=== PATIENT | female | born 1980 | race Caucasian/White ===

== ENCOUNTER 2016-03-04 11:11 | Emergency (ER) | END 2016-03-04 18:12 | disposition home or self-care (01) | DX: O20.9 Hemorrhage in early pregnancy, unspecified (principal); Z3A.01 Less than 8 weeks gestation of pregnancy | CPT/HCPCS: 36415; 76801; 76817; 81001; 84702; 85025; 86900; 86901; Z7502 ==

== ENCOUNTER 2016-03-05 09:21 | Day surgery (SDC) | payer MEDICAID ==
[~2016-03-05] VITALS: Wt 63.0 kg
--- NOTE | 2016-03-05 10:12 | ERA ---
ER Documentation Chief Complaint Date/Time DATE: 03/05/16 TIME: 10:10 Chief Complaint LOWER ABD PAIN AND VAG BLEED. RECENT MISCARRIAGE 3 DAYS AGO . NEEDS D&C HPI This is a 35-year-old female who was sent into the emergency room by her ENGINEERING SPECIALIST TECHNICIAN physician, Dr. keith for a D&C. This patient had a recent miscarriage 3 days ago with imaging showing retained products of conception. She has been having abdominal cramping and bleeding. And was instructed to come to the ER for evaluation ROS All systems reviewed and are negative except as per history of present illness. Allergies Allergies: Coded Allergies: No Known Allergy (Unverified , 03/04/16) PMhx/Soc Medical and Surgical Hx: pt denies Medical Hx, pt denies Surgical Hx Hx Alcohol Use: No Hx Substance Use: No Hx Tobacco Use: No Smoking Status: Never smoker Physical Exam Vitals Vital Signs Date Time Temp Pulse Resp B/P Pulse Ox O2 Delivery O2 Flow Rate FiO2 03/05/16 09:27 98.8 81 20 113/70 99 Physical Exam Const: No acute distress Head: Atraumatic Eyes: Normal Conjunctiva ENT: Normal External Ears, Nose and Mouth. Neck: Full range of motion..~ No meningismus. Resp: Clear to auscultation bilaterally Cardio: Regular rate and rhythm, no murmurs Abd: Soft, non tender, non distended. Normal bowel sounds Skin: No petechiae or rashes Back: No midline or flank tenderness Ext: No cyanosis, or edema Neur: Awake and alert Psych: Normal Mood and Affect Procedures/MDM This 35-year-old female presents to the emergency room for evaluation of vaginal bleeding, and cramping. This patient does have retained products of conception is visualized on the previous ultrasound. I have contacted her OB/ ASSEMBLY LEAD PERSON physician, Dr. phipps who is in agreement that this patient needs a dilation and curettage. This patient will be taken to the OR for a D&C and will be discharged after. Departure Diagnosis: Primary Impression: Retained products of conception Additional Impression: Vaginal bleeding Condition: KYA Mckeon DO Mar 05, 2016 10:12
[2016-03-05 10:28] LABS: ALBUMIN 4.6 g/dl (3.3-4.9); POTASSIUM 4.1 mmol/L (3.5-5.1)
[2016-03-05 10:30] LABS: CREATININE 0.51 mg/dl (0.44-1.00); INR 0.95; PROTIME 12.7 Sec (12.2-14.2)
[2016-03-05 10:31] LABS: ALBUMIN/GLOBULIN RATIO 1.15; BILIRUBIN,INDIRECT 0.4 mg/dl (0-1.1); BILIRUBIN,TOTAL 0.4 mg/dl (0.2-1.3); CALCIUM 9.7 mg/dl (8.4-10.2); PARTIAL THROMBOPLASTIN TIME 26.8 Sec (25.0-35.0); TOTAL PROTEIN 8.6 g/dl (6.1-8.1)
[2016-03-05 10:38] LABS: BASOPHILS % 0.5 % (0.0-2.0); EOSINOPHILS % 0.5 % (0.0-7.0); HEMATOCRIT 40.8 % (37.0-47.0); HEMOGLOBIN 13.6 g/dl (12.0-16.0); LYMPHOCYTES # 2.3 10^3/ul (0.8-2.9); LYMPHOCYTES % 25.2 % (15.0-51.0); MEAN CORPUSCULAR HEMOGLOBIN 30.4 pg (29.0-33.0); MEAN CORPUSCULAR HGB CONC 33.2 g/dl (32.0-37.0); MEAN CORPUSCULAR VOLUME 91.7 fl (82.0-101.0); MEAN PLATELET VOLUME 9.8 fl (7.4-10.4); MONOCYTE # 0.6 10^3/ul (0.3-0.9); MONOCYTES % 6.9 % (0.0-11.0); NEUTROPHILS % 66.9 % (39.0-77.0); PLATELET COUNT 245 10^3/UL (140-440); RED BLOOD COUNT 4.45 10^6/ul (4.20-5.40); RED CELL DISTRIBUTION WIDTH 13.3 % (11.5-14.5)
[2016-03-05 10:41] LABS: CONDITION 1
[2016-03-05] MEDS ORDERED: FENTAnyl 50 MCG/ML VIAL ONE (11:10)
[2016-03-05] MEDS ORDERED: MIDAZOLAM 1 MG/ML 2 ML INJ ONE (11:10)
[2016-03-05] MEDS ORDERED: PROPOFOL 20 ML ONE (11:13)
[2016-03-05] MEDS ORDERED: LIDOCAINE 2% (SDV) 5 ML INJ ONE (11:13)
[2016-03-05] MEDS ORDERED: ONDANSETRON 4 MG INJ ONE (11:51)
[2016-03-05] MEDS ORDERED: CEFAZOLIN 1 GM INJ ONE (11:58)
[2016-03-05] MEDS ORDERED: morphine (1 MG/ML) 10ML SYRINGE IV PRN ×2 (12:00)
[2016-03-05] MEDS ORDERED: DIPHENHYDRAMINE 50 MG INJ IV PRN (12:00)
[2016-03-05] MEDS ORDERED: MEPERIDINE 25 MG INJ IV PRN (12:00)
[2016-03-05] MEDS ORDERED: FENTAnyl 50 MCG/ML VIAL IV PRN (12:00)
[2016-03-05] MEDS ORDERED: ONDANSETRON 4 MG INJ IV PRN (12:00)
[2016-03-05] MEDS ORDERED: DEXTROSE 5%-LR 1,000 ML IV SCH (12:30)
--- NOTE | 2016-03-05 12:42 | OPR ---
DATE OF OPERATION: 03/05/2016 PREOPERATIVE DIAGNOSES: Intrauterine about 9 to 10 weeks, missed , vaginal bleedi ng. POSTOPERATIVE DIAGNOSIS: Intrauterine about 9 to 10 weeks, missed , vaginal bleed ing. OPERATION PERFORMED: Examination under anesthesia, dilatation and evacuation of the uterine content s. SURGEON: Kari Dean MD DESCRIPTION OF PROCEDURE: Under satisfactory general anesthesia, the patient was placed in supine p osition. Vaginal area was prepped and patient was draped. A bimanual pelvic examination revealed t he uterus about 8 to 9 weeks size. A weighted speculum was placed inside the vagina and the cervix was picked up with a tenaculum. The cervix was dilated up to 8 mm and using an 8 and 7 mm, the uter ine contents were evacuated. At the end of the procedure, a sharp curette was used to ensure comple te evacuation of uterine cavity. She had a moderate to small amount of bleeding. She tolerated the procedure well and was transferred to the recovery room in a stable condition. I should mentioned that she received 2 grams of Ancef as a prophylatic measure prior to the start of this procedure. Dictated By: KARI DEAN MD HF/NTS Conf#: [id number] DID#: [id number]
[2016-03-05] MEDS ORDERED: HYDROCODONE/APAP (5/325) TAB ONE (13:06)
[2016-03-05 13:25] VITALS: BP 129/58; PULSE 84; RESP 16
[2016-03-05] MEDS ORDERED: HYDROCODONE/APAP (5/325) TAB PO ONE (13:30)
== END 2016-03-05 14:45 | disposition home or self-care (01) ==
LOC: E/R 09:21 → SDS 11:00
DX: O02.1 Missed abortion (principal)
CPT/HCPCS: 59820; 80053; 85025; 85610; 85730; J0690; J2250; J2405; J3010; Z7502; Z7512; Z7610; 99283; J7121